=== PATIENT | female | born 1955 | race Caucasian/White ===

== ENCOUNTER 2020-10-07 21:57 | Emergency (ER) | payer MEDICARE, OTHER ==
[2020-10-08 01:08] LABS: HEMOGLOBIN 10.6 gm/dl (12.3-15.3); RED BLOOD COUNT 3.9 M/UL (4.00-5.10); WHITE BLOOD COUNT 15.4 K/UL (4.5-11.0)
[2020-10-08 01:25] LABS: BUN/CREATININE RATIO 12 (0-10)
[2020-10-08] MEDS ORDERED: FLAGYL500 MG PO (04:22)
[2020-10-08] MEDS ORDERED: PERCOCET 5/325 T1 EA PO (04:22)
[2020-10-08] MEDS ORDERED: AUGMENTIN 500-500 MG PO (04:22)
== END 2020-10-08 06:00 | disposition home or self-care (01) ==
LOC: ER1 21:57
PROVIDERS: Family Medicine
DX: K57.32 Diverticulitis of large intestine without perforation or abscess without bleeding (principal); D64.9 Anemia, unspecified; Z88.6 Allergy status to analgesic agent; Z85.3 Personal history of malignant neoplasm of breast
CPT/HCPCS: 36415; 80053; 81001; 83540; 83550; 83690; 85025; 87040; 87086; 96365; 96375; 99284; J0295; J2405; J7030; Q9967

== ENCOUNTER → 2020-12-04 | Outpatient (CLI) | payer MEDICARE, OTHER ==
[~2020-12-04] MED LIST: AUGMENTIN 500-500 MG PO; FLAGYL500 MG PO; PERCOCET 5/325 T1 EA PO
== END ==
LOC: KOH-I 15:30
DX: R60.0 Localized edema (principal)
CPT/HCPCS: 93970

== ENCOUNTER → 2021-06-22 | Outpatient (CLI) | payer MEDICARE, OTHER ==
[2021-06-22 12:57] LABS: HEMOGLOBIN 13.5 gm/dl (12.3-15.3); RED BLOOD COUNT 4.44 M/UL (4.00-5.10); WHITE BLOOD COUNT 5.6 K/UL (4.5-11.0)
[2021-06-22 13:24] LABS: BUN/CREATININE RATIO 21 (0-10)
== END ==
LOC: RAD 11:48
PROVIDERS: Family Medicine
DX: M47.816 Spondylosis without myelopathy or radiculopathy, lumbar region (principal); E78.5 Hyperlipidemia, unspecified; D50.9 Iron deficiency anemia, unspecified
CPT/HCPCS: 36415; 72110; 80053; 80061; 82728; 83540; 83550; 85025; 85045

== ENCOUNTER → 2021-08-01 | Outpatient (CLI) | payer MEDICARE, OTHER | LOC: KOH-I 07-30 11:15 | DX: M54.50 Low back pain, unspecified (principal); G62.9 Polyneuropathy, unspecified; M51.36 Other intervertebral disc degeneration, lumbar region | CPT/HCPCS: 72148 ==

== ENCOUNTER → 2022-03-01 | Outpatient (CLI) | payer MEDICARE, OTHER ==
[2022-03-01 13:49] LABS: BUN/CREATININE RATIO 21 (0-10)
[2022-03-01 15:25] LABS: HEMOGLOBIN 13.3 gm/dl (12.3-15.3); RED BLOOD COUNT 4.57 M/UL (4.00-5.10); WHITE BLOOD COUNT 6.5 K/UL (4.5-11.0)
== END ==
LOC: LAB 12:33
PROVIDERS: Family Medicine
DX: I10 Essential (primary) hypertension (principal); E78.5 Hyperlipidemia, unspecified
CPT/HCPCS: 36415; 80053; 80061; 83735; 85027